=== PATIENT | male | born 1950 | race Caucasian/White ===

== ENCOUNTER → 2023-08-24 | Outpatient (CLI) | payer OTHER ==
--- NOTE | 2023-08-28 11:06 | MR ---
EXAMINATION TYPE: MR liver wo/w con DATE OF EXAM: 08/24/2023 6:55 PM CLINICAL INDICATION:Male, 73 years old with history of R16.0 hepatomegaly; PHH, Liver mass COMPARISON: None TECHNIQUE: Multiplanar multi-sequence imaging was performed without contrast. Post contrast imaging was performed. Post IV contrast subtraction images were also submitted for review. IV Contrast: 9.5 cc Gadobutrol FINDINGS: LOWER CHEST: No gross irregularity. ABDOMEN Liver: No evidence for cirrhosis. Signal dropout on chemical shift out of phase imaging. Complex cyst in the left hepatic lobe measuring 38 x 32 mm with thin septations. No abnormal postcontrast in samuels sverse enhancement. Wedge shape area right hepatic lobe posteriorly measuring 41 x 32 mm without postcontrast enhancement is low T1 higher T2 signal. No abnormal postcontrast enhancement. No signal dropout on chemical shif t out of phase imaging. Mild signal loss on chemical shift in phase imaging. Tiny high T2 low T1 signal probable cysts are also scattered throughout the liver. Gallbladder and Bile ducts: No evidence for ductal dilation, or biliary stricture or evidence of chol edocholithiasis. The gallbladder is within normal limits. Pancreas: No ductal dilation. No evidence for solid mass. Atrophy changes of the pancreatic parenchym a Spleen: Normal for size. Adrenal glands: Unremarkable. Kidneys: Left renal cyst with possible thin septation measuring up to 26 mm. No evidence for obstruct alisha uropathy. No suspicious renal masses. Stomach and Bowel: No evidence for bowel wall thickening or evidence for obstruction. The appendix is normal. Retroperitoneum/Peritoneum: No evidence of pneumoperitoneum or free fluid. Vasculature: No aortic aneurysm. Musculoskeletal: The osseous structures appear intact, scoliosis changes of the spine with scoliosis apex L3. Degeneration with facet joint arthropathy and osteophytes. Lymph Nodes: No gross evidence for lymphadenopathy. Abdominal wall: Unremarkable. IMPRESSION: 1. Wedge-shaped area in the posterior aspect of the right hepatic lobe possibly related to prior inf arct. No abnormal postcontrast enhancement. Consider follow-up in 6 months to ensure stability. 2. Left hepatic lobe complex cystic lesion which could represent minimally complex cyst versus bilia ry cystadenoma Hepatic lymphangioma versus others felt to be less likely given its relatively benign appearance. 3. Hepatic steatosis. 4. Bosniak type I equivalent left renal cyst.
== END | disposition home or self-care (01) ==
LOC: RADMRIMAIN 17:44
PROVIDERS: ATTEND Family Medicine
DX: K76.0 Fatty (change of) liver, not elsewhere classified (principal); N28.1 Cyst of kidney, acquired; K76.89 Other specified diseases of liver; R16.0 Hepatomegaly, not elsewhere classified
CPT/HCPCS: 74183; A9585

== ENCOUNTER → 2023-10-10 | Outpatient (CLI) | payer OTHER ==
--- NOTE | 2023-10-10 13:26 | CA ---
Transthoracic Echo Report Name: Efrem Uribe Age: 73 Gender: M : 1950 Exam Date: 10/10/2023 08:32 Exam Location: [facility] Ht (in): 70 Wt (lb): 212 Ordering Physician: Bala Dorsey DO Attending/Referring Phys: Emani Crowder PAC [employer] Emmy Nix RDCS Procedure CPT: Indications: G45.3 Cardiac Hx: Technical Quality: Fair Contrast 1: Total Dose (mL): Contrast 2: Total Dose (mL): MEASUREMENTS (Male / Female) Normal Values 2D ECHO LV Diastolic Diameter PLAX 4.2 cm 4.2 - 5.9 / 3.9 - 5.3 cm LV Systolic Diameter PLAX 1.7 cm IVS Diastolic Thickness 1.5 cm 0.6 - 1.0 / 0.6 - 0.9 cm LVPW Diastolic Thickness 1.2 cm 0.6 - 1.0 / 0.6 - 0.9 cm LV Relative Wall Thickness 0.6 RV Internal Dim ED PLAX 2.9 cm LVOT Diameter 1.7 cm LA Volume 43.6 cm??? 18 - 58 / 22 - 52 cm??? LA Volume Index 19.8 cm???/m??? 16 - 28 cm???/m??? M-MODE Aortic Root Diameter MM 3.1 cm LA Systolic Diameter MM 3.5 cm LA Ao Ratio MM 1.1 AV Cusp Separation MM 1.5 cm DOPPLER AV Peak Velocity 187.7 cm/s AV Peak Gradient 14.1 mmHg AV Mean Velocity 124.8 cm/s AV Mean Gradient 7.3 mmHg AV Velocity Time Integral 35.1 cm LVOT Peak Velocity 141.1 cm/s LVOT Peak Gradient 8.0 mmHg LVOT Velocity Time Integral 27.4 cm LVOT Stroke Volume 62.5 cm??? LVOT Stroke Volume Index 29.2 ml/m??? LVOT Cardiac Index 1985.9 cm???/min???m??? AV Area Cont Eq vti 1.8 cm??? AV Area Cont Eq pk 1.7 cm??? MV Area PHT 2.7 cm??? Mitral E Point Velocity 68.5 cm/s Mitral A Point Velocity 92.7 cm/s Mitral E to A Ratio 0.7 MV Deceleration Time 278.9 ms MV E' Velocity 5.8 cm/s Mitral E to MV E' Ratio 11.8 TR Peak Velocity 144.0 cm/s TR Peak Gradient 8.3 mmHg Right Ventricular Systolic Press 13.3 mmHg PV Peak Velocity 212.0 cm/s PV Peak Gradient 18.0 mmHg PV Mean Velocity 151.7 cm/s PV Mean Gradient 10.0 mmHg PV Velocity Time Integral 47.3 cm FINDINGS Left Ventricle Moderately increased left ventricular wall thickness. Left ventricular cavity size normal. Normal left ventricular systolic function with no obvious regional wall motion abnormalities. Left ventricular ejection fraction is estimated at 55-60 %. Grade 1 diastolic dysfunction. Right Ventricle Normal right ventricular size and function. Mild pulmonary hypertension. Right Atrium Normal right atrial size. Left Atrium Normal left atrial size. Mitral Valve Structurally normal mitral valve. Mitral valve thickened. Moderate mitral annular calcification. Trace to mild mitral regurgitation. Aortic Valve Trileaflet aortic valve. No aortic valve stenosis or regurgitation. Aortic valve sclerosis. Tricuspid Valve Structurally normal tricuspid valve. [id number] tricuspid regurgitation. Pulmonic Valve Mild trace pulmonic regurgitation. Valvular pulmonic stenosis. Pericardium No pericardial effusion. Aorta Normal size aortic root and proximal ascending aorta. CONCLUSIONS Moderately increased left ventricular wall thickness Left ventricular ejection fraction 55-60% RVSP 47 Moderate mitral annular calcification Mild mitral regurgitation Mild to moderate tricuspid regurgitation Previewed by: Dr. Ted Corral DO (Electronically Signed) Final Date: 10 Oct 2023 13:26
== END | disposition home or self-care (01) ==
LOC: RADECHMAIN 08:06
PROVIDERS: ATTEND Family Medicine
DX: I34.0 Nonrheumatic mitral (valve) insufficiency (principal); I36.1 Nonrheumatic tricuspid (valve) insufficiency; I34.81 Nonrheumatic mitral (valve) annulus calcification; G45.3 Amaurosis fugax; I51.89 Other ill-defined heart diseases
CPT/HCPCS: 93306

== ENCOUNTER → 2023-11-09 | Outpatient (CLI) | payer OTHER ==
--- NOTE | 2023-11-09 21:13 | US ---
EXAMINATION TYPE: US carotid duplex BILAT DATE OF EXAM: 11/09/2023 COMPARISON: NONE CLINICAL INDICATION: Male, 73 years old with history of G45.3 AMAUROSIS FUGAX; no h/o stroke TECHNIQUE: Carotid duplex ultrasound examination. Indirect Doppler criteria was utilized. FINDINGS: EXAM MEASUREMENTS: RIGHT: Peak Systolic Velocity (PSV) cm/sec ----- Right CCA: 102.0 ----- Right ICA: 80.9 ----- Right ECA: 120.0 ICA/CCA ratio: 0.8 RIGHT: End Diastole cm/sec ----- Right CCA: 12.3 ----- Right ICA: 10.9 ----- Right ECA: 0.0 LEFT: Peak Systolic Velocity (PSV) cm/sec ----- Left CCA: 121.0 ----- Left ICA: 81.5 ----- Left ECA: 88.4 ICA/CCA ratio: 0.7 LEFT: End Diastole cm/sec ----- Left CCA: 18.3 ----- Left ICA: 16.1 ----- Left ECA: 0.0 VERTEBRALS (direction of flow): Right Vertebral: Antegrade Left Vertebral: Antegrade Rhythm: Normal HAND B[employer] STITCHER NOTES: Mild homogeneous plaque with no stenosis seen IMPRESSION: No ultrasound evidence for hemodynamically significant stenosis of the visualized bilateral carotid a rterial systems. Criteria for Assigning % of Stenosis / Diameter reduction (Estimation based on the indirect measurements of the internal carotid artery velocities (ICA PSV). 1. Normal (no stenosis)=ICA PSV < 125 cm/s: ratio < 2.0: ICA EDV<40 cm/s. 2. Less than 50% stenosis=ICA PSV < 125 cm/s: ratio < 2.0: ICA EDV<40 cm/s. 3. 50 to 69% stenosis=ICA PSV of 125 to 230 cm/s: ration 2.0 ? 4.0: ICA EDV 40-100 cm/s. 4. Greater than 70% stenosis to near occlusion= ICA PSV > 230 cm/s: ratio > 4.0: ICA EDV > 100 cm/s. 5. Near occlusion= ICA PSV velocities may be low or undetectable: variable ratio and ICA EDV. 6. Total occlusion=unable to detect flow.
== END | disposition home or self-care (01) ==
LOC: RADUSWWP 14:26
PROVIDERS: ATTEND Family Medicine
DX: G45.3 Amaurosis fugax (principal)
CPT/HCPCS: 93880

== ENCOUNTER → 2024-02-23 | Outpatient (CLI) | payer OTHER ==
--- NOTE | 2024-02-25 10:05 | MR ---
EXAMINATION TYPE: MR cervical spine wo con DATE OF EXAM: 02/23/2024 3:10 PM CLINICAL INDICATION: Male, 73 years old with history of R20 numbness of hands; PHH, Vineet hand numbness COMPARISON: None. TECHNIQUE: Multi planar, multi sequence imaging was performed utilizing: T1-weighted, T2-weighted, an d turbo inversion recovery imaging of the cervical spine. IV Contrast: cc (none if empty) FINDINGS: Alignment: The cervical vertebral bodies have preserved heights. Alignment is within normal limits gi radha patient positioning. Bones: Multilevel disc space narrowing and osteophyte formation with facet and uncovertebral joint ar thropathy. Cord: The spinal cord is unremarkable with regards to their signal intensity and morphology. Discs: Intervertebral disc signal is maintained. C2-C3: No significant disc pathology. The spinal canal is patent. No neural foraminal stenosis. C3-C4: Central disc osteophyte complex impresses upon the spinal cord signal cord appears within norm al limits. Bilateral facet and uncovertebral joint arthropathy are present with mild bilateral neural foraminal stenosis. C4-C5: Central disc osteophyte complex impresses upon the spinal cord signal cord appears within norm al limits. Bilateral facet and uncovertebral joint arthropathy are present with mild to moderate bila teral neural foraminal stenosis. C5-C6: A disc osteophyte complex is present with mild spinal canal stenosis. Bilateral facet and unc overtebral joint arthropathy are present with moderate bilateral neural foraminal stenosis. C6-C7: A disc osteophyte complex is present with moderate to severe spinal canal stenosis with ligame ntum flavum buckling posteriorly. Bilateral facet and uncovertebral joint arthropathy are present wi th moderate bilateral neural foraminal stenosis. C7-T1: No significant disc pathology. The spinal canal is patent. No neural foraminal stenosis. Other: None. IMPRESSION: 1. Moderate to severe severe spinal canal stenosis at C6-C7 secondary disc osteophyte complex and lig amentum flavum buckling. 2. Mild to moderate disc degeneration with associated osteoarthritic changes. Neural foraminal stenos is worse at C6-C7 with moderate bilateral and C4-C5 with mild to moderate bilateral neural foraminal stenosis. [facility], Workstation: [id number], 02/25/2024 10:02 AM
== END | disposition home or self-care (01) ==
LOC: RADMRIMAIN 14:32
PROVIDERS: ATTEND Family Medicine
DX: M50.30 Other cervical disc degeneration, unspecified cervical region (principal); M48.02 Spinal stenosis, cervical region; M47.812 Spondylosis without myelopathy or radiculopathy, cervical region; M25.78 Osteophyte, vertebrae; R20.0 Anesthesia of skin
CPT/HCPCS: 72141